=== PATIENT | male | born 1980 | race Caucasian/White ===

== ENCOUNTER → 2017-11-20 | Outpatient (CLI) | payer OTHER ==
[~2017-11-20] MED LIST: BARIUM SULFATE 176 GM BTL PO ONE; BARIUM SULFATE 340 GM POWD ONE
--- NOTE | 2017-11-20 16:50 | RADIOLOGY IMAGING REPORT ---
FACILITY: [facility] PATIENT NAME: Asa Montesinos : 1980 MR: [id number] V: [id number] EXAM DATE: ORDERING PHYSICIAN: ADAM BOSWELL TECHNOLOGIST: Location: [facility] Patient: Asa Montesinos : 1980 Visit/Account:[id number] Date of Sevice: 11/20/2017 Exam type: ESOPHAGRAM History: No symptoms, totally had reflux by dentist Comparison: None. Findings: Double contrast esophagram was performed with thick and thin barium. Moderate gastroesophageal reflu x was observed. There was minimal narrowing at the distal esophagus. No mucosal erosions identified . No evidence of intraluminal masses. The fluoroscopy dose area product was 160.68 micro-Shah per m eter squared IMPRESSION: 1. Moderate gastric esophageal reflux with minimal narrowing at the distal esophagus. Report Dictated By: Kristy Campos MD at 11/20/2017 4:44 PM Report E-Signed By: Kristy Campos MD at 11/20/2017 4:46 PM WSN:[email or web address]
== END ==
LOC: RAD 01:49
PROVIDERS: ATTEND Family Medicine
DX: K21.9 Gastro-esophageal reflux disease without esophagitis (principal)
CPT/HCPCS: 74220